=== PATIENT | male | born 2000 | race Caucasian/White ===

== ENCOUNTER 2024-12-23 13:38 | Emergency (ER) | payer OTHER, SELFPAY ==
[2024-12-23 14:22] VITALS: BP 142/81; PULSE 116; RESP 18; TEMP 38.1; O2SAT 98; BMI 28.9
[2024-12-23] MEDS: ACETAMINOPHEN 325 MG TABLET 975 MG PO (14:45)
--- NOTE | 2024-12-23 14:48 | ED.FEVER ---
HPI - Fever General Chief Complaint: Fever Stated Complaint: Mouth and neck pain x 2 days Time Seen by Provider: 12/23/24 14:41 Source: patient Mode of arrival: Ambulatory History of Present Illness HPI Narrative: 24-year-old gentleman presents with subjective fever, sore throat, left side of jaw pain, that started to 3 days ago. Patient has been taking ketorolac OTC from [place] which to help initially but has continued to get worse. Patient denies cough, runny nose, sinus congestion, ear pain, dental pain, or difficulty swallowing at this time. Other than what is stated 14 point review of systems negative Related Data Previous Rx's Medication Instructions Recorded azithromycin 250 mg tablet See Rx Instructions PO .COMPLEX #6 12/23/24 tabs cephalexin 500 mg capsule 500 mg PO BID #20 caps 12/23/24 Allergies Allergy/AdvReac Type Severity Reaction Status Date / Time Penicillins Allergy Unknown Verified 12/23/24 10:15 Review of Systems Review of Systems ROS Unobtainable: All systems reviewed & are unremarkable except as noted in HPI and below Exam Narrative Exam Narrative: GENERAL: [82] year old patient appears stated age. Well-developed patient, in mild distress. HEAD: Atraumatic. Normocephalic. EYES: Pupils equal round and reactive. Extraocular motions intact. No scleral icterus. No injection or drainage. ENT: Nose without bleeding, purulent drainage. Throat erythema, tonsillar hypertrophy but no extudeate. Airway patent. NECK: Trachea midline. Non tender CARDIOVASCULAR: Regular rate and rhythm without murmurs, gallops, or rubs. RESPIRATORY: Clear to auscultation. Breath sounds equal bilaterally. No wheezes, rales, or rhonchi. GASTROINTESTINAL: Abdomen soft, non-tender, nondistended. EXTREMITIES: No edema or joint tenderness. BACK: Nontender without deformity or crepitance. No flank tenderness. NEURO: AOx3. SKIN: No rash or erythema of visible areas Initial Vital Signs Initial Vital Signs: Vital Signs Temperature 100.5 F H 12/23/24 14:22 Pulse Rate 116 H 12/23/24 14:22 Respiratory Rate 18 12/23/24 14:22 Blood Pressure 142/81 H 12/23/24 14:22 Pulse Oximetry 98 12/23/24 14:22 Oxygen Delivery Method Room Air 12/23/24 14:22 Course Orders Ordered: ED Orders 12/23/24 14:34 Strep Grp A by PCR Rapid Stat Discontinued Medications Acetaminophen (Acetaminophen 325 Mg Tablet) 975 mg PO NOW ONE Stop: 12/23/24 14:36 Last Admin: 12/23/24 14:45 Dose: 975 mg Documented By: EMMA Vital Signs Vital signs: Vital Signs - 8 hr 12/23/24 14:22 Temperature 100.5 F H Pulse Rate 116 H Respiratory Rate 18 Blood Pressure 142/81 H Pulse Oximetry 98 Oxygen Delivery Method Room Air MDM - Fever MDM Narrative Medical decision making narrative: All lab work, vital signs, nurse triage note, medication list, and previous ER visits all reviewed. Patient given cephalexin prednisone andh Tylenol. Differential diagnosis includes strep, mono, salivary duct stone, peritonsillar abscess, otitis media, COVID, flu, and RSV. DC home on cephalexin prescription and to return with new or worsening symptoms Discharge Plan Departure Patient Disposition: Home Clinical Impression: Acute bacterial tonsillitis Activity Restrictions/Additional Instructions: Return with new or worsening symptoms. Take your medicines as directed. Follow up with PCP for recheck in 1-2 weeks. Prescriptions: New cephalexin 500 mg capsule 500 mg PO BID Qty: 20 0RF No Action azithromycin 250 mg tablet See Rx Instructions PO .COMPLEX Qty: 6 0RF Rx Instructions: For 250 mg dose pack: take 500 mg today (day 1), then 250 mg for 4 days (days 2-5) PO Stand Alone Forms: Patient Portal/API/Survey
[2024-12-23 15:53] LABS: Strep Grp A by PCR Rapid Negative (Negative)
[2024-12-23] MEDS: predniSONE 20 MG TABLET 60 MG PO (15:53)
[2024-12-23] MEDS: cephALEXin 250 MG CAPSULE 500 MG PO (15:54)
[2024-12-23 16:01] VITALS: TEMP 37.4
[2024-12-23 16:10] VITALS: BP 135/83; PULSE 103; O2SAT 97
== END 2024-12-23 16:24 | disposition home or self-care (01) ==
PROVIDERS: Emergency Provider Family Medicine
DX: J03.80 Acute tonsillitis due to other specified organisms (principal)
CPT/HCPCS: 87651; 99283